=== PATIENT | male | born 1950 | race Caucasian/White ===

== ENCOUNTER 2019-05-16 18:27 | Emergency (ER) | payer OTHER, MEDICARE ==
[2019-05-16 18:57] VITALS: TEMP 97.9; BMI 24.7
--- NOTE | 2019-05-16 19:28 | PDOC ---
History of Present Illness - General Chief Complaint: Lightheaded Stated Complaint: DIZZINES - History of Present Illness Initial Comments: The pt is a 68M w/ a history of fatty liver, BPH, and HTN who presents for dizziness for 4 hours. The pt describes 4 hours of sudden onset sensation that he is moving or that the room is spinning. It is worse with sitting/moving and better with laying down. He denies tinnitus, fevers, RIBERA, sensation/strength changes. He endorses nausea and subsequent retching s/p onset of dizziness. He has had this happen once before but has never been evaluated for these symptoms. He tried taking a quarter of a tablet of meclizine and children's benadryl w/ little relief. Denies chest pain, trouble breathing, abdominal pain, diarrhea, blood in stool, dysuria, hematuria. 05/16/19 19:55 Past History - Past Medical History Allergies/Adverse Reactions: Allergies Allergy/AdvReac Type Severity Reaction Status Date / Time No Known Allergies Allergy Verified 05/16/19 18:38 Home Medications: Ambulatory Orders Carbamide Peroxide 6.5% [Debrox -] 5 drop AU BID #1 bottle 05/16/19 Meclizine HCl [Antivert -] 25 mg PO QID PRN #28 tablet 05/16/19 Verapamil HCl [Verapamil ER] 240 mg PO HS 05/16/19 COPD: No HTN: Yes Liver Disease: Yes (FATTY LIVER) - Immunization History Immunization Up to Date: Yes - Psycho Social/Smoking Cessation Hx Smoking History: Never smoked Have you smoked in the past 12 months: No Information on smoking cessation initiated: No Hx Alcohol Use: No Drug/Substance Use Hx: No Review of Systems - Review of Systems Able to Perform ROS?: Yes Comments:: GENERAL/CONSTITUTIONAL: No fever or chills. No weakness HEAD, EYES, EARS, NOSE AND THROAT: No change in hearing. No sore throat CARDIOVASCULAR: No chest pain or shortness of breath RESPIRATORY: Denies cough, hemoptysis GASTROINTESTINAL: No nausea, vomiting, diarrhea or constipation GENITOURINARY: No dysuria, frequency, or change in urination MUSCULOSKELETAL: No joint or muscle swelling or pain. No neck or back pain SKIN: No rash NEUROLOGIC: No headache, loss of consciousness, or change in strength/sensation ENDOCRINE: No increased thirst. No abnormal weight change HEMATOLOGIC/LYMPHATIC: No anemia, easy bleeding, or history of blood clots ALLERGIC/IMMUNOLOGIC: No hives or skin allergy 05/16/19 19:27 Is the patient limited Macedonian proficient: No *Physical Exam - Vital Signs Last Vital Signs Temp Pulse Resp BP Pulse Ox 97.9 F 87 17 183/86 H 95 05/16/19 18:32 05/16/19 18:32 05/16/19 18:32 05/16/19 18:32 05/16/19 18:32 - Physical Exam GENERAL: Awake, alert, and oriented to person/place/time, in no acute distress HEAD: No signs of trauma, normoc ephalic, atraumatic EYES: PERRLA, EOMI, sclera anicteric, conjunctiva clear ENT: Hearing grossly normal, TMs not visualized 2/2 b/l cerumen, nares patent, oropharynx clear without exudates. Moist mucosa LUNGS: No distress, speaks in full sentences, clear to auscultation bilaterally HEART: Regular rate and rhythm, normal S1 and S2, no murmurs appreciated, peripheral pulses normal and equal bilaterally ABDOMEN: Soft, nontender, normoactive bowel sounds. No guarding, no rebound EXTREMITIES: Normal inspection, Normal range of motion, no edema. No clubbing or cyanosis NEUROLOGICAL: Cranial nerves II through XII grossly intact. Normal speech, no focal sensorimotor deficits SKIN: Warm, Dry 05/16/19 19:28 ED Treatment Course - LABORATORY CBC & Chemistry Diagram: 05/16/19 19:30 05/16/19 19:30 Medical Decision Making - Medical Decision Making The pt is a 68M w/ a history of fatty liver, BPH, and HTN who presents for dizziness for 4 hours likely 2/2 BPPV +tony hallpike ED Course Labs sent Meclizine for dizziness Will apply H2O2 to EAM for b/l cerumen impaction 05/16/19 20:00 ECG w/ NSR; HR 78; QTc 451; no axis deviation; no GHASSAN WBC noted, afebrile, non-tachy No anemia Lytes unremarkable No VICKIE LFTs unremarkable Trop I neg CXR w/o acute pathology 05/16/19 20:27 Cerumen impaction cleared b/l Pt states symptoms improved Pt ambulating in ED w/ stable gait Rx for Meclizine and Debrox sent to pt's pharmacy Pt has ENT f/u Plan for D/C w/ PCP/ENT f/u Discharge instructions and return precautions given Patient in agreement and verbalized understanding Dispo: Home 05/16/19 21:16 Discharge - Discharge Information Problems reviewed: Yes Clinical Impression/Diagnosis: Vertigo Cerumen impaction Qualifiers: Laterality: bilateral Qualified Code(s): H61.23 - Impacted cerumen, bilateral Condition: Stable Disposition: HOME - Admission No - Follow up/Referral Referrals: Refugio Love MD [Primary Care Provider] - Juan Eagle MD [Staff Physician] - - Patient Discharge Instructions Patient Printed Discharge Instructions: DI for Vertigo Additional Instructions: You were seen in the Emergency Department for evaluation of dizziness (vertigo) . You were found to have cerumen (ear wax) impaction in both ears which was cleaned. Your labs and imaging were unremarkable. Review the handout provided at discharge. Follow up with your ENT within 1-2 weeks. A prescription for Meclizine and Debrox ear drops was sent to your pharmacy, take as directed. Return to the Emergency Department if you develop fevers, persistent dizziness, ringing in your ears, weakness/sensation changes, chest pain, trouble breathing , worsening symptoms, or any new/concerning symptoms. - Post Discharge Activity
[2019-05-16 19:32] VITALS: BP 167/85; PULSE 77
[2019-05-16 19:44] LABS: BASO % 0.5 % (0-2.0); EOS % 0.1 % (0-4.5); HEMATOCRIT 43.8 % (35.4-49); HEMOGLOBIN 14.6 GM/dL (11.7-16.9); LYMPH % 5.4 % (8-40); MCH 30.5 pg (25.7-33.7); MCHC 33.4 g/dl (32.0-35.9); MEAN CELL VOLUME 91.4 fl (80-96); MEAN PLT VOLUME 8.3 fl (7.5-11.1); MONO % 6.1 % (3.8-10.2); NEUT % 87.9 % (42.8-82.8); PLATELET COUNT 241 K/MM3 (134-434); RBC 4.79 M/mm3 (4.00-5.60); RDW 13.3 % (11.9-15.9); WHITE BLOOD COUNT 11.3 K/mm3 (4.0-10.0)
--- NOTE | 2019-05-16 19:47 | PDOC ---
Attending Attestation - Resident Resident Name: Bertin Jorge - ED Attending Attestation I have performed the following: I have examined & evaluated the patient, The case was reviewed & discussed with the resident, I agree w/resident's findings & plan - HPI HPI: 05/16/19 20:06 Pt comes with dizziness; he feels the room spinning when he changes position. He has a hx of HTN. Never had this before. He has no RIBERA and no vision changes; no neurologic complaints weakness, etc. Vitals are normal. Pt has no other complaints - Physicial Exam PE: 05/16/19 20:07 Agree with resident exam Pt has nystagmius bilaterally Afebrile TMs cerumen impaction bilaterally BP equal in bioth arms and pt doesn't have orthostatic hypotension - Medical Decision Making 05/16/19 21:30 Pt's labs are normal. Neuro intact; no need for CT imaging of the brain. Pt's cerumen impaction was cleared and he is feeling better; pt also treated with meclicine and he will be going home with meclizine also. Heart Score/ECG Review - ECG Intrepretation Rhythm: Regular Rhythm - [place]: Normal - P and [place] Atrial Enlargement: Right Prominent R with upright T in V1 (true posterior [place]): No Delta Wave(s) Present: No WPW: No - QRS Poor R Wave Progression: No Q Wave Present: No - ST and T Early Repolarization: No Non Specific ST-T Wave changes: No Flattened T Waves: No Prolonged Q-T Interval: No - ECG Impressions Normal ECG: Yes Non-specific ST Elevation: No Ischemic Changes: No Bradycardia: No Torsades lizzy Pointes: No WPW: No
[2019-05-16] MEDS ORDERED: MECLIZINE HCL 25 MG TABLET (FP) PO ONE (19:48)
[2019-05-16] MEDS ORDERED: SODIUM CHLORIDE 0.9% 500 ML INFUS.BAG IV ONE (19:48)
[2019-05-16] MEDS ORDERED: MECLIZINE HCL 25 MG TABLET (FP) ONE (19:51)
[2019-05-16 20:00] LABS: INR 1.03 (0.83-1.09); PROTHROMBIN TIME (PATIENT) 12.1 SEC (9.7-13.0)
[2019-05-16 20:03] LABS: ACTIVATED PTT 24.9 SECONDS (25.2-36.5)
[2019-05-16 20:10] LABS: URINE APPEARANCE CLEAR; URINE BILIRUBIN NEGATIVE (NEGATIVE); URINE COLOR YELLOW; URINE GLUCOSE (UA) NEGATIVE (NEGATIVE); URINE KETONE TRACE (NEGATIVE); URINE LEUK ESTERASE NEGATIVE (NEGATIVE); URINE NITRITE NEGATIVE (NEGATIVE); URINE PROTEIN TRACE (NEGATIVE)
[2019-05-16] MEDS ORDERED: ONDANSETRON 4 MG/2 ML VIAL IVPUSH ONE (20:11)
[2019-05-16 20:18] LABS: ALBUMIN 3.9 g/dl (3.4-5.0); ALK PHOS 131 U/L (45-117); ANION GAP 7 MMOL/L (8-16); BILIRUBIN,TOTAL 0.4 mg/dL (0.2-1); BLOOD UREA NITROGEN 19.2 mg/dL (7-18); CALCIUM 8.6 mg/dL (8.5-10.1); CHLORIDE 107 mmol/L (98-107); CO2 25 mmol/L (21-32); CREATININE 1.1 mg/dL (0.55-1.3); GLUCOSE,RANDOM 155 mg/dL (74-106); MAGNESIUM 2.1 mg/dL (1.8-2.4); SGOT/AST 15 U/L (15-37); SGPT/ALT 25 U/L (13-61); SODIUM 139 mmol/L (136-145); TOT PROT 6.9 g/dl (6.4-8.2)
[2019-05-16] MEDS ORDERED: ONDANSETRON 4 MG/2 ML VIAL ONE (20:37)
--- NOTE | 2019-05-17 11:02 | EKG ---
Test Reason : Blood Pressure : / mmHG Vent. Rate : 078 BPM Atrial Rate : 078 BPM P-R Int : 154 ms QRS Dur : 090 ms QT Int : 396 ms P-R-T Axes : 068 054 036 degrees QTc Int : 451 ms NORMAL SINUS RHYTHM POSSIBLE LEFT ATRIAL ENLARGEMENT NONSPECIFIC ST ABNORMALITY ABNORMAL ECG WHEN COMPARED WITH ECG OF 22-MAY-2000 09:51, NO SIGNIFICANT CHANGE WAS FOUND Confirmed by JUAN CARLOS WASHINGTON MD ([id number]) on 05/17/2019 11:02:02 AM Referred By: Confirmed By:JUAN CARLOS WASHINGTON MD
== END 2019-05-16 21:48 | disposition home or self-care (01) ==
LOC: JER 18:27
PROC: 3E1B78Z Irrigation of Ear using Irrigating Substance, Via Natural or Artificial Opening (ICD-10-PCS; principal; 2019-05-16)
PROC: 3E1B78Z Irrigation of Ear using Irrigating Substance, Via Natural or Artificial Opening (ICD-10-PCS; 2019-05-16)
DX: H61.23 Impacted cerumen, bilateral (principal); R42 Dizziness and giddiness; I10 Essential (primary) hypertension; K76.0 Fatty (change of) liver, not elsewhere classified; N40.0 Benign prostatic hyperplasia without lower urinary tract symptoms
CPT/HCPCS: 36415; 69209; 71045-TC-FY; 80053; 81003; 82550; 83735; 84484; 85025; 85610; 85730; 93005; 93010; 99283-25